=== PATIENT | female | born 1950 | race Caucasian/White ===

== ENCOUNTER 2018-09-20 02:30 | Inpatient (IN) ==
[2018-09-14 08:35] LABS: URINE SOURCE CLEAN CATCH
[2018-09-14 08:46] LABS: BASO# 0.04 X1000 (0.0-0.2); BASO% 0.8 % (0.0-0.8); BILIRUBIN URINE NEGATIVE (NEGATIVE); BLOOD URINE TRACE (NEGATIVE); COLOR YELLOW; EOS# 0.16 X1000 (0.0-0.7); EOS% 3.1 % (0.0-10.0); GLUCOSE URINE NEGATIVE (NEGATIVE); HEMATOCRIT 40.2 % (37.0-47.0); HEMOGLOBIN 13.5 g/dL (12.0-16.0); KETONE URINE NEGATIVE (NEGATIVE); LEUKOCYTES URINE NEGATIVE (NEGATIVE); LYMPH# 1.35 X1000 (1.2-3.4); LYMPH% 26.1 % (20.5-51.1); MCH 31.3 PG (27-31); MCHC 33.6 g/dL (33-37); MCV 93.3 FL (81-99); MONO# 0.38 X1000 (0.11-0.59); MONO% 7.3 % (1.7-9.3); MPV 10.5 FL (7.4-10.4); NEUT# 3.25 X1000 (1.4-6.5); NEUT% 62.7 % (42.2-75.2); NITRITE URINE NEGATIVE (NEGATIVE); PH URINE 5.5; PLT 225 X1000 (130-400); PROTEIN URINE NEGATIVE (NEGATIVE); RBC 4.31 XMIL (4.2-5.4); RDW 12.6 % (11.5-14.5); SP GRAVITY URINE 1.008; TURBIDITY URINE CLEAR (CLEAR); UROBILINOGEN URINE NORMAL (NORMAL); WBC 5.18 X1000 (4.8-10.8)
--- NOTE | 2018-09-14 09:01 | EKG Report ---
Test Performed on : 09/14/2018 08:15:39 AM Test Reason : PAT Blood Pressure : / mmHG Vent. Rate : 088 BPM Atrial Rate : 088 BPM P-R Int : 136 ms QRS Dur : 098 ms QT Int : 360 ms P-R-T Axes : 053 -60 043 degrees QTc Int : 435 ms Normal sinus rhythm. Incomplete right bundle branch block Left anterior fascicular block Abnormal ECG No previous ECGs available Confirmed by Reji MINOR, Toby Caba ([id number]) on 09/15/2018 6:36:56 PM
[2018-09-14 09:14] LABS: UR EPITHELIAL CELLS <10 /HPF (<10); URINE BACTERIA 2+ /HPF; URINE RBC <10 /HPF (<10); URINE WBC <10 /HPF (<10)
[2018-09-14 09:18] LABS: AGAP 11; BUN 15 mg/dL (8-22); CALCIUM 8.7 mg/dL (8.8-10.2); CHLORIDE 104 mmol/L (98-107); COSMO 279; CREATININE 0.9 mg/dL (0.5-0.9); ESTIMATED GFR > 60; GLUCOSE 79 mg/dL (70-104); POTASSIUM 4.2 mmol/L (3.5-5.1); SODIUM 140 mmol/L (136-145); TCO2 25 mmol/L (25-35)
[2018-09-14 09:39] LABS: INR 0.81; PROTIME 11.9 Seconds (11.0-16.0)
[2018-09-14 09:41] LABS: PTT 27.3 Seconds (22.3-41.8)
[2018-09-14 09:55] LABS: URINE YEAST NONE SEEN
[2018-09-20] MEDS ORDERED: VALIUM ONE (08:35)
[2018-09-20] MEDS ORDERED: LYRICA ONE (08:35)
[2018-09-20] MEDS ORDERED: PEPCID ONE (08:35)
[2018-09-20] MEDS ORDERED: REGLAN ONE (08:35)
[2018-09-20] MEDS ORDERED: KEFZOL 1 GM/D5W 2 GM/100 ML IVPB ONE (08:36)
[2018-09-20] MEDS ORDERED: CELEBREX ONE (08:36)
[2018-09-20] MEDS ORDERED: LR 1,000 ML ONE (08:36)
[2018-09-20] MEDS ORDERED: COLACE ONE (08:45)
[2018-09-20] MEDS ORDERED: XYLOCAINE-MPF 2% ONE (09:46)
[2018-09-20] MEDS ORDERED: DIPRIVAN 1% ONE (09:46)
[2018-09-20] MEDS ORDERED: DECADRON ONE (09:46)
[2018-09-20] MEDS ORDERED: OFIRMEV 1000 MG/ISOTONIC SOLN 1,000 MG/100 ML BOTTLE ONE ×2 (09:46→09:53)
[2018-09-20] MEDS ORDERED: ZEMURON ONE (09:46)
[2018-09-20] MEDS ORDERED: QUELICIN (DOSE) ONE (09:46)
[2018-09-20] MEDS ORDERED: ZOFRAN ONE (09:46)
[2018-09-20] MEDS ORDERED: FENTANYL ONE (09:47)
[2018-09-20] MEDS ORDERED: TORADOL ONE ×2 (09:52→12:58)
[2018-09-20] MEDS ORDERED: DURAMORPH ONE (09:52)
[2018-09-20] MEDS ORDERED: CYKLOKAPRON 1,000 MG/NS 1,000 MG/100 ML IVPB ONE (09:52)
[2018-09-20] MEDS ORDERED: MARCAINE 0.25% PF ONE (09:52)
[2018-09-20] MEDS ORDERED: SODIUM CHLORIDE 0.9% ONE (09:52)
[2018-09-20] MEDS ORDERED: NEOSPORIN G.U. IRRIGANT ONE (09:53)
[2018-09-20] MEDS ORDERED: EXPAREL 1.3% ONE (09:53)
[2018-09-20 11:15] LABS: URINE SOURCE CATH
[2018-09-20] MEDS ORDERED: NEO-SYNEPHRINE ONE (11:20)
[2018-09-20 11:23] LABS: BILIRUBIN URINE NEGATIVE (NEGATIVE); BLOOD URINE NEGATIVE (NEGATIVE); COLOR STRAW; GLUCOSE URINE NEGATIVE (NEGATIVE); KETONE URINE NEGATIVE (NEGATIVE); SP GRAVITY URINE 1.007; TURBIDITY URINE CLEAR (CLEAR)
[2018-09-20 11:24] LABS: LEUKOCYTES URINE NEGATIVE (NEGATIVE); NITRITE URINE NEGATIVE (NEGATIVE); PH URINE 5.5; PROTEIN URINE NEGATIVE (NEGATIVE); UR EPITHELIAL CELLS <10 /HPF (<10); URINE BACTERIA NEGATIVE /HPF; URINE RBC <10 /HPF (<10); URINE WBC <10 /HPF (<10); UROBILINOGEN URINE NORMAL (NORMAL)
[2018-09-20] MEDS ORDERED: EPHEDRINE ONE (11:53)
[2018-09-20] MEDS ORDERED: ROBINUL ONE (11:54)
--- NOTE | 2018-09-20 12:07 | OPERATIVE NOTE ---
PROCEDURE DATE: 09/20/2018 PREOPERATIVE DIAGNOSIS: Degenerative joint disease, right hip. POSTOPERATIVE DIAGNOSIS: Degenerative joint disease, right hip. PROCEDURE PERFORMED: Right total hip replacement. SURGEON: Marichuy Jarvis MD. PATENT LEGAL ASSISTANT: MALATHI Cota. Mr. Jones was necessary for proper retraction and manipulation of the hip. ANESTHESIA: General. COMPLICATION: None. PROCEDURE IN DETAIL: This 68-year-old female presents for right anterior hip replacement. Risks, benefits, and no guarantees were discussed and she is willing to proceed. She was taken to the operating room and satisfactory anesthesia obtained. The right hip was prepped and draped in usual sterile fashion on the [place] table. A time-out was taken to confirm operative site, procedure, and patient. An anterior approach to the right hip was undertaken with an incision starting 1 cm distal and lateral to the anterosuperior iliac spine and carried over the tensor fascia for roughly 12 cm. Dissection was carried down through the skin and subcutaneous fat to the fascia, tensor fascia skyler. This was split in line with the incision and blunt dissection along the inner membrane of the tensor fascia undertaken down to the anterior hip capsule. Cobra retractors were placed over the superior and inferior aspect of the femoral neck and a capsulotomy incision made. The C-arm was then used to make an AP pelvis of both hips to determine leg length after osteotomy. Femoral neck osteotomy was then made and the femoral head removed. This was sized to a 46 femoral head. Sequential reaming up to a 51 reamer was undertaken with good corticocancellous bone in the acetabulum. A DePuy Shiloh Duofix cup was impacted into the acetabulum under fluoroscopic imaging in roughly 45 degrees of abduction and 10 to 15 degrees of anteversion. This had secure press-fit fixation. A 25 length screw was placed in the 12 o'clock position of the cup followed by a 36 mm inner diameter polyethylene bearing with 0 degree buildup. After impaction of the bearing, the bearing cup interface and cup bone interface was checked and noted to be stable. A small Cobra retractor was placed directly on the anterior acetabular bone to protect the neurovascular structures anteriorly and care taken to ensure this was placed directly on bone. This was removed at this time and the hip extended with the traction released and externally rotated to facilitate access to the proximal femur. Sequential broaching of the proximal femur was undertaken up to a size 2 Actis stem which had secure axial and rotational stability. High offset neck with a 1.5 neck length head was selected with good amish of leg length as well as stability. The trial stem was removed and a size 2 collared Actis high offset stem impacted in the proximal femur with secure axial and rotational stability. A 36 mm ceramic head with a 1.5 neck length was impacted onto this and the hip reduced. The C-arm was used to verify accurate reduction as well as amish of leg length and component position. The hip was extended with the traction off and externally rotated down to the floor to ensure there was no anterior instability. Posterior stability was assessed by flexing the hip and internally rotating it without any posterior instability. The wound was then copiously irrigated with irrigant. The joint capsule was injected with Exparel for pain management. A Hemovac was placed and brought out through a separate stab wound. The capsule was then closed over the Hemovac and the fascia of the tensor closed with a running V-Loc suture. The subcutaneous was closed with 2-0 Vicryl and the skin with skin kam. Sterile dressings completed the closure and the patient was recovered from anesthesia and transferred to the recovery room in stable condition. No intraoperative complications were noted. Instrument count and sponge count was correct at the time of closure. cc: Ashish Jarvis MD
[2018-09-20] MEDS ORDERED: NS 1,000 ML ONE (12:11)
[2018-09-20] MEDS: DILAUDID ONE ×4 (12:33→12:48)
--- NOTE | 2018-09-20 12:57 | ORTHOPAEDICS PROGRESS NOTE ---
DATE: 09/20/2018 SUBJECTIVE DATA: Ms. Ortiz is seen postop right total hip arthroplasty. She reports her pain is 6/10 at this time. She is seen in postop recovery, and she is still somewhat sleepy. OBJECTIVE: There is good sensation, right lower extremity. There are good pedal pulses. The patient is not cooperative during exam, and cannot flex her quadriceps muscles at this time. Her bandages are clean and dry, and there is roughly 20 mL of drainage in her drain. ASSESSMENT: Right total hip arthroplasty with degenerative joint disease of the right hip. PLAN: We plan on checking on Ms. Ortiz in the morning and see how she is doing. If she is doing well, we may send her home on home therapy. Dictated by MALAHTI Cota for Ashish Jarvis MD cc: MALATHI Cota MD
[2018-09-20] MEDS: PHENERGAN ONE ×2 (13:15→13:20)
[2018-09-20] MEDS ORDERED: OXY IR PO PRN (14:15)
[2018-09-20] MEDS ORDERED: ZOFRAN IV PRN (14:15)
[2018-09-20] MEDS ORDERED: DILAUDID IV PRN (14:15)
[2018-09-20] MEDS ORDERED: CYKLOKAPRON 1,000 MG in NS 100 ML IV ONE (16:25)
[2018-09-20] MEDS: ULTRAM PO SCH ×2 (16:32→23:23)
[2018-09-20] MEDS: TYLENOL PO SCH ×2 (16:33→23:22)
[2018-09-20] MEDS ORDERED: PNEUMOVAX 23 IM ONE (17:00)
[2018-09-20] MEDS: KEFZOL 2 GM/D5W 2 GM/50 ML IVPB IV SCH (18:15)
[2018-09-20] MEDS: COLACE PO SCH (19:36)
[2018-09-20] MEDS: DILAUDID IV PRN ×2 (19:36→21:44)
[2018-09-20] MEDS: PERIDEX MT SCH (19:36)
[2018-09-21] MEDS: NS 1,000 ML IV SCH ×2 (02:56→06:54)
[2018-09-21] MEDS: KEFZOL 2 GM/D5W 2 GM/50 ML IVPB IV SCH (02:56)
[2018-09-21] MEDS: DILAUDID IV PRN ×2 (03:09→07:01)
[2018-09-21] MEDS: TYLENOL PO SCH ×3 (03:52→11:14)
[2018-09-21] MEDS: ULTRAM PO SCH ×3 (03:53→13:29)
[2018-09-21] MEDS: PATIENT'S OWN MED PO SCH ×2 (06:30→06:55)
[2018-09-21] MEDS: COLACE PO SCH ×2 (06:54→08:00)
[2018-09-21] MEDS: PERIDEX MT SCH ×2 (06:55→08:03)
[2018-09-21 07:02] LABS: AGAP 6; BUN 12 mg/dL (8-22); CHLORIDE 107 mmol/L (98-107); COSMO 280; CREATININE 0.8 mg/dL (0.5-0.9); ESTIMATED GFR > 60; GLUCOSE 113 mg/dL (70-104); POTASSIUM 4.9 mmol/L (3.5-5.1); SODIUM 140 mmol/L (136-145); TCO2 27 mmol/L (25-35)
[2018-09-21 07:07] LABS: HEMATOCRIT 29.7 % (37.0-47.0); HEMOGLOBIN 9.7 g/dL (12.0-16.0)
[2018-09-21] MEDS: OXY IR PO PRN ×2 (07:51→11:13)
--- NOTE | 2018-09-21 07:55 | ORTHOPAEDICS PROGRESS NOTE ---
DATE: 09/21/2018 Ms. Ortiz is seen status post hip replacement. At the present time, she is afebrile with stable vital signs. Her incision is clean and dry. She is motor and sensory intact. There are no signs of DVT. She can be mobilized today with therapy. The lines can be discontinued. She can be transferred home later today with home therapy. We will see her back in the office in roughly 2 weeks. She can return to see me for any worsening signs or symptoms. cc: Ashish Jarvis MD
[2018-09-21 08:15] VITALS: BP 97/48
[2018-09-21] MEDS ORDERED: PEPCID PO SCH (09:00)
[2018-09-21] MEDS ORDERED: CELEBREX PO SCH (09:00)
[2018-09-21] MEDS ORDERED: ASPIRIN PO SCH (09:00)
[2018-09-21] MEDS ORDERED: PATIENT'S OWN MED PO SCH (09:00)
[2018-09-21] MEDS ORDERED: ZOCOR PO SCH (09:00)
== END 2018-09-21 15:11 | disposition home health service (06) | DRG 470 ==
LOC: SURHOLD 02:30 → 4N 14:09
PROVIDERS: ADMIT Orthopaedic Surgery Adult Reconstructive Orthopaedic Surgery; ATTEND Orthopaedic Surgery Adult Reconstructive Orthopaedic Surgery
CPT/HCPCS: 76000; 80048; 81001; 85014; 85018; 85025; 85610; 85730; 86850; 86900; 86901; 88304; 88311; 93005; 93010; 94761; 94799; 97110; 97116; 97162; A9270; C9290; J0131; J0330; J0690; J1100; J1170; J1885; J2274; J2275; J2370; J2405; J2550; J3010; J7030; J7120; Q9974; S0020